=== PATIENT | female | born 1985 | race Caucasian/White ===

== ENCOUNTER 2017-03-20 10:09 | Emergency (ER) | payer BC ==
[~2017-03-20] VITALS: Ht 157.5 cm; Wt 60.0 kg
[~2017-03-20 10:09] MED LIST: CELEXA 20MG20 MG/TAB PO; CEPHALEXIN500 M1 PO; DYNACIN100 M1 PO; ESTRACE PO; NO HOME MEDICATIONS; PERCR 7.5 PO; PRENATAL PO; ZOLOFT 100MG100 MG PO
[2017-03-20 10:13] VITALS: BP 124/72; TEMP 98.6
[2017-03-20] MEDS ORDERED: VITAMIN B-6100 MG (10:16)
[2017-03-20 10:54] LABS: BASO % 0.2 % (0.0-2.0); EOS % 0.2 % (0-4.0); GRAN # 5.2 (1.4-6.5); GRAN % 81.9 % (42.2-75.2); HEMATOCRIT 39.4 % (37.0-47.0); HEMOGLOBIN 13.3 g/dl (12.5-16.0); LYMPH # 0.7 (1.2-3.4); LYMPH % 10.3 % (20.0-51.0); MEAN CELL VOLUME 93 fl (80.0-100.0); MEAN CORPUSCULAR HEMOGLOBIN 32 pg (27.0-31.0); MEAN CORPUSCULAR HGB CONC 34 g/dl (33.0-37.0); MEAN PLATELET VOLUME 10.6 fl (7.4-10.4); MONO # 0.5 (0.1-0.6); MONO % 7.1 % (1.7-9.3); PLATELET COUNT 149 K/mm3 (130-400); RED BLOOD COUNT 4.22 M/mm3 (4.10-5.30); REDCELL DISTRIBUTION WIDTH-CV 12.6 % (11.5-14.5); WHITE BLOOD COUNT 6.4 K/mm3 (4.8-10.8)
[2017-03-20 10:57] LABS: PH 7 (5-8); SQUAMOUS EPITHELIAL 0-2 /hpf; URINE APPEARANCE Clear; URINE BACTERIA None Seen /hpf; URINE BILIRUBIN Negative (NEGATIVE); URINE BLOOD Negative (NEGATIVE); URINE COLOR Straw; URINE GLUCOSE Negative (NEGATIVE); URINE KETONE Negative (NEGATIVE); URINE RBC None Seen /hpf; URINE UROBILINOGEN Negative (NEGATIVE); URINE WBC 0-2 /hpf
[2017-03-20 11:09] LABS: ADJUSTED CALCIUM 8.9 mg/dL (8.4-10.2); ALBUMIN 4.6 gm/dL (3.5-5.0); BILIRUBIN,TOTAL 0.6 mg/dL (0.0-1.0); CALCIUM 9.4 mg/dL (8.4-10.2); CREATININE, serum 0.55 mg/dL (0.52-1.25); POTASSIUM 3.6 mmol/L (3.4-5.0)
[2017-03-20 12:06] VITALS: PULSE 79
== END 2017-03-20 11:55 | disposition home or self-care (01) ==
LOC: COL.ER 10:09
PROVIDERS: Family Medicine
DX: O99.281 Endocrine, nutritional and metabolic diseases complicating pregnancy, first trimester (principal); E86.9 Volume depletion, unspecified; O21.9 Vomiting of pregnancy, unspecified; Z3A.08 8 weeks gestation of pregnancy
CPT/HCPCS: J2550; J7030

== ENCOUNTER → 2017-08-31 | Outpatient (CLI) | payer BC ==
[~2017-08-31] MED LIST changes: +VITAMIN B-6100 MG
== END ==
LOC: SUN.DIA 08-24 16:57
DX: O24.419 Gestational diabetes mellitus in pregnancy, unspecified control (principal); Z3A.31 31 weeks gestation of pregnancy; Z71.3 Dietary counseling and surveillance
CPT/HCPCS: G0108

== ENCOUNTER → 2017-09-01 | Outpatient (CLI) | payer BC | LOC: SUN.DIA 08:47 | DX: O24.419 Gestational diabetes mellitus in pregnancy, unspecified control (principal); Z3A.31 31 weeks gestation of pregnancy; Z71.3 Dietary counseling and surveillance | CPT/HCPCS: G0108 ==

== ENCOUNTER → 2017-09-13 | Outpatient (CLI) | payer BC | LOC: SUN.DIA 11:02 | DX: O24.419 Gestational diabetes mellitus in pregnancy, unspecified control (principal); Z3A.32 32 weeks gestation of pregnancy; Z71.3 Dietary counseling and surveillance | CPT/HCPCS: G0108 ==

== ENCOUNTER 2017-09-24 14:33 | Inpatient (IN) | payer BC ==
[~2017-09-24] VITALS: Ht 160 cm; Wt 75.9 kg
[2017-10-31] VITALS (31 sets, daily range): BP systolic 98–132; BP diastolic 53–83; PULSE 64–125; TEMP 97.9–98.5
[2017-10-31 08:31] LABS: BASO % 0.4 % (0.0-2.0); EOS % 0.6 % (0-4.0); GRAN # 3.8 (1.4-6.5); LYMPH % 19.3 % (20.0-51.0); MEAN CELL VOLUME 91 fl (80.0-100.0); MEAN CORPUSCULAR HGB CONC 32 g/dl (33.0-37.0); MONO # 0.5 (0.1-0.6); MONO % 8.3 % (1.7-9.3); PLATELET COUNT 122 K/mm3 (130-400); WHITE BLOOD COUNT 5.4 K/mm3 (4.8-10.8)
[2017-10-31 08:32] LABS: HEMATOCRIT 35.4 % (37.0-47.0); HEMOGLOBIN 11.4 g/dl (12.5-16.0); MEAN CORPUSCULAR HEMOGLOBIN 29 pg (27.0-31.0)
[2017-11-01 03:40] VITALS: BP 105/71; PULSE 72; TEMP 97.9
[2017-11-01 09:15] VITALS: BP 104/61; PULSE 75; TEMP 97.7
[2017-11-01] MEDS ORDERED: IBU600 MG PO (11:31)
[2017-11-01] MEDS ORDERED: PERCOCET 325 MG1 TA2 PO (11:31)
== END 2017-11-01 15:30 | disposition home or self-care (01) | DRG 775 ==
LOC: LDR 10-28 14:32 → OB 10-31 07:13 → LDR 10-31 07:13 → OB 10-31 14:57
PROVIDERS: Obstetrics & Gynecology
PROC: 10E0XZZ Delivery of Products of Conception, External Approach (ICD-10-PCS; principal; 2017-10-31)
PROC: 3E033VJ Introduction of Other Hormone into Peripheral Vein, Percutaneous Approach (ICD-10-PCS; 2017-10-31)
PROC: 0HQ9XZZ Repair Perineum Skin, External Approach (ICD-10-PCS; 2017-10-31)
DX: O24.420 Gestational diabetes mellitus in childbirth, diet controlled (principal); O76 Abnormality in fetal heart rate and rhythm complicating labor and delivery; O70.0 First degree perineal laceration during delivery; Z3A.39 39 weeks gestation of pregnancy; Z37.0 Single live birth
CPT/HCPCS: J2405; J2590; J2791; J7120

== ENCOUNTER → 2017-09-27 | Outpatient (CLI) | payer BC | LOC: SUN.DIA 08:57 | DX: O24.419 Gestational diabetes mellitus in pregnancy, unspecified control (principal); Z3A.00 Weeks of gestation of pregnancy not specified; Z71.3 Dietary counseling and surveillance | CPT/HCPCS: G0108 ==

== ENCOUNTER 2018-10-14 09:17 | Day surgery (SDC) | payer BC ==
[~2018-10-14] VITALS: Ht 160 cm; Wt 62.9 kg
[~2018-10-14 09:17] MED LIST changes: +IBU600 MG PO; +PERCOCET 325 MG1 TA2 PO
[2018-10-14 11:10] VITALS: BP 106/73; PULSE 78; TEMP 98.2
[2018-10-14 11:25] VITALS: BP 102/81; PULSE 86
[2018-10-14 11:40] VITALS: BP 102/68; PULSE 69
[2018-10-14 11:55] VITALS: BP 99/67; PULSE 73
== END 2018-10-14 12:00 | disposition home or self-care (01) ==
LOC: SDCO 09:17
DX: Z12.11 Encounter for screening for malignant neoplasm of colon (principal); K92.1 Melena; E28.2 Polycystic ovarian syndrome; K21.0 Gastro-esophageal reflux disease with esophagitis; Z83.79 Family history of other diseases of the digestive system; F41.9 Anxiety disorder, unspecified; Z86.010 Personal history of colon polyps; Z88.1 Allergy status to other antibiotic agents; Z88.2 Allergy status to sulfonamides; Z88.0 Allergy status to penicillin
CPT/HCPCS: J2405; J2704; J7120

== ENCOUNTER 2021-05-12 07:02 | Outpatient (CLI) | payer OTHER ==
[~2021-05-12] VITALS: Ht 160 cm; Wt 63.8 kg
[2021-05-12 07:47] VITALS: BP 110/57; PULSE 81; TEMP 97.8
--- NOTE | 2021-05-12 07:56 | NUR ---
TO RM AT 0721- CALL LIGHT IN REACH AT BEDSIDE.
[2021-05-12 09:40] VITALS: BP 104/59; PULSE 71; TEMP 98.7
--- NOTE | 2021-05-12 09:40 | NUR ---
TO RM 8 PER CART FROM PACU FOLLOWING A BONE MARROW BX. DROWSY, BUT ANSWERED QUESTIONS. LAYING FLAT ON CART. AT BEDSIDE.
[2021-05-12 09:55] VITALS: BP 98/55; PULSE 68
--- NOTE | 2021-05-12 09:55 | NUR ---
PATIENT RESTING QUIETLY. LAB CALLED TO DRAW BLOOD.
[2021-05-12 10:00] LABS: BASO % 0.4 % (0.0-2.0); EOS % 0.8 % (0-4.0); GRAN # 1.8 (1.4-6.5); GRAN % 68.7 % (42.2-75.2); HEMOGLOBIN 11.6 g/dl (12.5-16.0); LYMPH # 0.5 (1.2-3.4); LYMPH % 20.3 % (20.0-51.0); MEAN CELL VOLUME 93 fl (80.0-100.0); MEAN CORPUSCULAR HEMOGLOBIN 31 pg (27.0-31.0); MEAN CORPUSCULAR HGB CONC 33 g/dl (33.0-37.0); MEAN PLATELET VOLUME 9.5 fl (7.4-10.4); MONO # 0.2 (0.1-0.6); MONO % 9.4 % (1.7-9.3); PLATELET COUNT 139 K/mm3 (130-400); RED BLOOD COUNT 3.78 M/mm3 (4.10-5.30); REDCELL DISTRIBUTION WIDTH-CV 12.7 % (11.5-14.5)
[2021-05-12 10:10] VITALS: BP 98/58; PULSE 70
--- NOTE | 2021-05-12 10:10 | NUR ---
MORE AWAKE AND TAKING SIPS OF WATER.
[2021-05-12 10:15] VITALS: BP 100/64; PULSE 70
--- NOTE | 2021-05-12 10:15 | NUR ---
WAKING UP NICELY. REFUSED ANTTHING TO EAT PRIOR TO DISCHARGE.
--- NOTE | 2021-05-12 10:20 | NUR ---
RECEIVED DISCHARGE INSTRUCTIONS AND VERBALIZED UNDERSTANDING. DISCONTINUED IV AND INT- CATHETER INTACT.
[2021-05-12 10:25] VITALS: BP 104/59; PULSE 74
--- NOTE | 2021-05-12 10:30 | NUR ---
DISCHARGED PER WC BY NURSING STAFF TO PRIVATE CAR IN CARE OF KAYLEIGH.
== END 2021-05-12 10:51 | disposition home or self-care (01) ==
LOC: SDCO 07:02
PROVIDERS: Pathology Anatomic Pathology & Clinical Pathology
DX: D64.9 Anemia, unspecified (principal); D70.9 Neutropenia, unspecified; M25.50 Pain in unspecified joint; R16.1 Splenomegaly, not elsewhere classified; K21.9 Gastro-esophageal reflux disease without esophagitis; D80.1 Nonfamilial hypogammaglobulinemia; F32.9 Major depressive disorder, single episode, unspecified; F41.9 Anxiety disorder, unspecified; Z79.899 Other long term (current) drug therapy; Z82.61 Family history of arthritis
CPT/HCPCS: J2704; J3010; J7120

== ENCOUNTER 2021-10-17 06:06 | Day surgery (SDC) | payer BC ==
[~2021-10-17] VITALS: Ht 160 cm; Wt 61.9 kg
[2021-10-17 06:50] VITALS: BP 115/73; PULSE 83; TEMP 98.3
[2021-10-17] MEDS ORDERED: PLAQUENIL 200M200 MG PO (06:57)
[2021-10-17] MEDS ORDERED: PROTONIX20 MG PO (06:58)
[2021-10-17] MEDS ORDERED: ZOLOFT 100MG100 MG PO (06:58)
[2021-10-17] MEDS ORDERED: PROTONIX 40MG T40 MG PO (06:59)
[2021-10-17 07:35] VITALS: BP 99/74; PULSE 81; TEMP 98.2
--- NOTE | 2021-10-17 07:35 | NUR ---
Patient arrives to endo bay 1 via cart, accompanied by Endo RN Rani Del Valle. She is drowsy, but easily awakened to voice and appropriate with staff. She ambulates with standby assist to the chair in her room. Monitoring is applied - VSS on room air. Her family is at the bedside. Lights are dimmed for comfort. She denies complaints or needs. Call light in reach.
[2021-10-17 07:50] VITALS: BP 102/71; PULSE 71
--- NOTE | 2021-10-17 07:50 | NUR ---
Patient is alert, sitting up in chair. She is offered and receives a muffin and water to drink.
[2021-10-17 08:05] VITALS: BP 100/60; PULSE 70
--- NOTE | 2021-10-17 08:25 | NUR ---
Patient has met discharge criteria. PIV is removed with catheter intact and hemostasis achieved. Discharge instructions are discussed; she denies any questions and verbalizes understanding. She changes to her clothing independently. She is escorted to the exit via wheelchair by staff. She is discharged to the care of her spouse, who drives her home in a private vehicle at 0825.
== END 2021-10-17 08:25 | disposition home or self-care (01) ==
LOC: SDCO 06:06
DX: Z12.11 Encounter for screening for malignant neoplasm of colon (principal); D12.8 Benign neoplasm of rectum; K21.9 Gastro-esophageal reflux disease without esophagitis; F32.A Depression, unspecified; F41.9 Anxiety disorder, unspecified; Z86.010 Personal history of colon polyps; Z79.899 Other long term (current) drug therapy
CPT/HCPCS: J2405; J2704; J7030